=== PATIENT | male | born 1960 | race African-American/Black ===

== ENCOUNTER 2016-08-17 15:02 | Inpatient (IN) | payer MEDICAID ==
[~2016-08-17] VITALS: Ht 170.2 cm; Wt 49.9 kg
[2016-08-17 11:00] VITALS: BP 142/69
[2016-08-17 16:26] LABS: ALBUMIN 3.3 g/dL (3.4-5.0); ANION GAP 23.2 mmol/L (8-16); BILIRUBIN - TOTAL 0.2 mg/dL (0.2-1.3); CALCIUM 8.5 mg/dL (8.5-10.1); CARBON DIOXIDE 13.5 mmol/L (21.0-32.0); CREATININE - SERUM 1.5 mg/dL (0.6-1.3); MAGNESIUM - SERUM 1.9 mg/dL (1.8-2.4); POTASSIUM - SERUM 3.7 mmol/L (3.5-5.1); PROTEIN - SERUM 6.9 g/dL (6.4-8.2)
[2016-08-17 16:31] LABS: BASOPHILS 0.1 % (0-2); EOSINOPHILS 1.2 % (0-7); HEMATOCRIT 25.5 % (42.0-54.0); HEMOGLOBIN 8.3 g/dL (13.5-17.5); IMMATURE GRANULOCYTES 0.6 % (0-5); LYMPHOCYTES 17.8 % (15-50); MCH 29.9 pg (26.0-34.0); MCHC 32.5 g/dL (31.0-37.0); MCV 91.7 fL (80.0-100.0); MONOCYTES 7.5 % (2-11); NEUTROPHILS 72.8 % (40-80); PLATELET COUNT 241 10x3/uL (130-400); RBC 2.78 10x6/uL (4.20-6.10); RDW 16.5 % (11.5-14.5); WBC 15.4 10x3/uL (4.8-10.8)
[2016-08-17 18:44] LABS: APPEARANCE CLEAR (CLEAR); BILIRUBIN NEGATIVE (NEGATIVE); COLOR YELLOW (YELLOW); GLUCOSE NEGATIVE (NEGATIVE); KETONE NEGATIVE (NEGATIVE); LEUKOCYTE ESTERASE NEGATIVE (NEGATIVE); NITRITE NEGATIVE (NEGATIVE); PROTEIN NEGATIVE (NEGATIVE); UROBILINOGEN NORMAL (NORMAL)
[2016-08-17 23:00] VITALS: BP 142/69
--- NOTE | 2016-08-18 00:30 | NUR ---
PATIENT RESTING IN BED WITH NO SIGNS OF DISTRESS. COMPLETED PATIENT'S ASSESSMENT AND HUNG FLUIDS PER ORDERS. BLOOD GLUCOSE CURRENTLY 96. BROUGHT PATIENT SCRUB TOP, SCRUB BOTTOMS, NOSLIP SOCKS, AND SPRITE PER HIS REQUEST. PATIENT DENIES OTHER NEEDS AT THIS TIME. BED IN LOWEST POSITION AND CALL LIGHT WITHIN REACH. ENCOURAGED THE PATIENT TO CALL IF HE HAS FURTHER NEEDS.
[2016-08-18 01:17] VITALS: BP 142/69; BMI 17.2
[2016-08-18] MEDS ORDERED: FOLIC ACID1 MG PO (01:25)
[2016-08-18] MEDS ORDERED: PRENATAL PO (01:29)
[2016-08-18] MEDS ORDERED: FOLIC ACI PO (01:29)
[2016-08-18] MEDS ORDERED: GLUCOTROL ER2.5 MG PO (01:30)
[2016-08-18] MEDS ORDERED: NEURONTIN 300300 MG PO (01:30)
[2016-08-18] MEDS ORDERED: K-TAB10 MEQ PO (01:31)
[2016-08-18] MEDS ORDERED: GLUCOPHAGE500 MG PO (01:33)
[2016-08-18] MEDS ORDERED: LISINOPRIL10 MG PO (01:34)
[2016-08-18] MEDS ORDERED: HUMALOG 30100 UNITS/ SC (01:35)
[2016-08-18 04:39] VITALS: BP 116/54
--- NOTE | 2016-08-18 07:15 | NUR ---
REPORT RECEIVED FROM CHIEF LIBRARIAN BRANCH NURSE. CALL LIGHT IN REACH.
[2016-08-18 07:28] LABS: BASOPHILS 0 % (0-2); EOSINOPHILS 0.8 % (0-7); HEMATOCRIT 26.7 % (42.0-54.0); HEMOGLOBIN 8.9 g/dL (13.5-17.5); IMMATURE GRANULOCYTES 0.2 % (0-5); LYMPHOCYTES 15.1 % (15-50); MCH 29.8 pg (26.0-34.0); MCHC 33.3 g/dL (31.0-37.0); MEAN PLATELET VOLUME 10.3 fL (7.4-10.4); MONOCYTES 10.6 % (2-11); NEUTROPHILS 73.3 % (40-80); PLATELET COUNT 241 10x3/uL (130-400); RBC 2.99 10x6/uL (4.20-6.10); RDW 16.4 % (11.5-14.5); WBC 10.5 10x3/uL (4.8-10.8)
[2016-08-18 07:29] LABS: MCV 89.3 fL (80.0-100.0)
[2016-08-18 07:53] LABS: ANION GAP 13.5 mmol/L (8-16); CALCIUM 8.6 mg/dL (8.5-10.1); CARBON DIOXIDE 24.9 mmol/L (21.0-32.0); CREATININE - SERUM 1.3 mg/dL (0.6-1.3); MAGNESIUM - SERUM 1.4 mg/dL (1.8-2.4); POTASSIUM - SERUM 4.4 mmol/L (3.5-5.1)
[2016-08-18 07:58] VITALS: BP 122/70
--- NOTE | 2016-08-18 09:50 | NUR ---
ASSESSMENT COMPLETED. OFFERED SCDs BUT PATIENT REFUSED. CALL LIGHT IN REACH. WILL CONTINUE WITH PLAN OF CARE.
--- NOTE | 2016-08-18 11:43 | NUR ---
AM MEDS ADMINISTERED. FSBS 308. WAITING ON INSULIN FROM PHARMACY. OFFERED SCDs BUT REFUSED.
--- NOTE | 2016-08-18 12:28 | NUR ---
IV OF NS INITIATED PER DR. OWNE' ORDER.
--- NOTE | 2016-08-18 12:43 | NUR ---
PT AOX4 RESP EVEN AND NONLABORED PT HERE FOR HYPOGLYCEMIA AT THIS TIME IV TO LEFT FOREARM PATENT AND INTACT AND IV TO RIGHT FOREARM PATENT AND INTACT. PT SITTING ON SIDE OF BED BED AT LOWEST SETTING CALL LIGHT WITHIN REACH WILL CONTINUE TO MONITOR
[2016-08-18 12:46] VITALS: BP 120/76
[2016-08-18 12:49] LABS: HEMOGLOBIN A1C 11.4 % (4.8-6.0)
--- NOTE | 2016-08-18 14:30 | NUR ---
DENIES NEEDS AT THIS TIME. CALL LIGHT IN REACH.
[2016-08-18 14:31] VITALS: Ht 170.2 cm; Wt 49.9 kg
[2016-08-18 16:02] VITALS: BP 113/67
--- NOTE | 2016-08-18 16:58 | NUR ---
10 UNITS OF HUMALOG INSULIN SUBQ TO RLQ FOR FSBS 400. LIBRIUM.
--- NOTE | 2016-08-18 18:36 | NUR ---
NO CHANGES IN INITIAL ASSESSMEHNT. CALL LIGHT IN REACH. WANTS TO WAIT UNTIL BEDTIME FOR SCDs. WILL CONTINUE WITH PLAN OF CARE.
[2016-08-18 20:00] VITALS: BP 108/62
--- NOTE | 2016-08-18 22:57 | NUR ---
GEOVANNI CALLED BACK AFTER PAGE. NOTIFIED HER THAT THE PATIENT'S BLOOD GLUCOSE IS 414.
[2016-08-19] VITALS: BP 104/59
--- NOTE | 2016-08-19 03:55 | NUR ---
PATIENT REFUSED SCD'S
[2016-08-19 04:00] VITALS: BP 121/88
--- NOTE | 2016-08-19 04:04 | NUR ---
PATIENT TELEMETRY IS 73 CONT A-FIB
[2016-08-19 05:55] LABS: BASOPHILS 0.1 % (0-2); EOSINOPHILS 2.2 % (0-7); HEMATOCRIT 25.5 % (42.0-54.0); HEMOGLOBIN 8.7 g/dL (13.5-17.5); IMMATURE GRANULOCYTES 0.2 % (0-5); LYMPHOCYTES 36.7 % (15-50); MCH 30.9 pg (26.0-34.0); MCHC 34.1 g/dL (31.0-37.0); MCV 90.4 fL (80.0-100.0); MEAN PLATELET VOLUME 11.4 fL (7.4-10.4); MONOCYTES 12.2 % (2-11); NEUTROPHILS 48.6 % (40-80); PLATELET COUNT 234 10x3/uL (130-400); RBC 2.82 10x6/uL (4.20-6.10); RDW 16.5 % (11.5-14.5); WBC 8.1 10x3/uL (4.8-10.8)
[2016-08-19 06:37] LABS: ANION GAP 14.6 mmol/L (8-16); CALCIUM 8.7 mg/dL (8.5-10.1); CARBON DIOXIDE 23.5 mmol/L (21.0-32.0); CREATININE - SERUM 1.2 mg/dL (0.6-1.3); PHOSPHOROUS 3.9 mg/dL (2.5-4.9); POTASSIUM - SERUM 4.1 mmol/L (3.5-5.1)
--- NOTE | 2016-08-19 07:10 | NUR ---
REPORT RECEIVED FROM POULTRY PROCESSING SUPERVISOR NURSE. CALL LIGHT IN REACH. AMBULATING IN HALLWAY.
--- NOTE | 2016-08-19 07:53 | NUR ---
PATIENT IS AWAKE, AND ALERT. LAYING IN BED EATING TALKING ON THE PHONE. ROOM AIR. NO SIGNS OF DISTRESS NOTED. BED IN LOWEST POSITION, CALL LIGHT IN REACH.
[2016-08-19 07:58] VITALS: BP 145/80
--- NOTE | 2016-08-19 08:35 | NUR ---
ASSESSMENT COMPLETED. AM MEDS ADMINISTERED. REFUSES NICOTINE PATCH AND SCDs. CALL LIGHT IN REACH. WILL CONTINUE WITH PLAN OF CARE.
--- NOTE | 2016-08-19 09:14 | NUR ---
Patient Name: GENEVA LAL Admission Status: ER Accout number: [id number] Admission Date: 08-17-2016 : 1960 Admission Diagnosis: Attending: MIRNA Current LOS: 2 Anticipated DC Date: 08-22-2016 Planned Disposition: Home Primary Insurance: [place] PRIVATE OPTIONS SARBJIT Discharge Planning Comments: CM MET WITH PATIENT REGARDING D/C NEEDS AND PLANS. PATIENT STATED HE LIVES WITH HIS MOM (PARDEEP LAL) AND THERE ARE 4 STEPS W/RAILS TO ENTER HOME AND NO STAIRS INSIDE. PATIENT STATED HE IS INDEPENDENT WITH HIS CARE AND HAS A WALKER AND GLUCOMETER (CKS. MAYBE 1X DAY) AT HOME. PATIENTS PCP IS DR. ROGEL WITH [facility] AND [facility]ARAMCY IS [facility] [address] [facility]. PATIENT REFUSED HOME HEALTH AND PATIENT REFUSED. CM WILL CONTINUE TO FOLLOW PATIENT WITH D/C NEEDS AND PLANS. PCP DR. JUAN F MOORE [address] [facility]- [phone] PARDEEP LAL (MOM) [phone] Physician Assistant: Meera Tovar Is the patient Alert and Oriented? Yes 0 * How many steps to enter\exit or inside your home? 4 W/RAILS 0 * PCP DR. ROGEL ([facility]) 0 * Pharmacy [facility] [address] [facility] 0 * Preadmission Environment Home with Family 0 * ADLs Independent 0 * Equipment Glucometer Walker 0 * List name and contact numbers for known caregivers / representatives who currently or will assist patient after discharge: PARDEEP LAL (MOM) [phone] 0 * Community resources currently utilized None 0 * Additional services required to return to the preadmission environment? Yes 0 * Can the patient safely return to the preadmission environment? Yes 0 * Has this patient been hospitalized within the prior 30 days at any hospital? No 0 Grand Total: 0
--- NOTE | 2016-08-19 10:20 | NUR ---
AMBULATING IN HALLWAY. DENIES NEEDS AT THIS TIME.
[2016-08-19 12:24] LABS: % SATURATION 36 % (15-55); IRON 88 ug/dl (35-150); TOTAL IRON BIND CAPACITY 240 ug/dl (260-445); UNSAT IRON BIND CAPACITY 152 ug/dl (150-375)
[2016-08-19 12:28] VITALS: BP 116/65
--- NOTE | 2016-08-19 12:36 | NUR ---
FSBS 413. NOTIFIED DR. OWEN. 20 UNITS SUBQ TO LLQ ABDOMEN. LIBRIUM PO. CALL LIGHT IN REACH.
--- NOTE | 2016-08-19 14:46 | NUR ---
NO NEEDS VOICED AT THIS TIME. CALL LIGHT IN REACH.
--- NOTE | 2016-08-19 19:00 | NUR ---
PATIENT AMBULATING IN HALLWAY, NOW BACK IN BED. AAOX4. RR EVEN AND UNLBORED. 0 S/S OF DISTRESS. DENIES PAIN AT THIS TIME. IV TO RIGHT HAND PATENT WITH NO REDNESS OR SWELLING. SCD'S IN ROOM BUT OFF. FAMILY AT BEDSIDE. SRX1. BED LOW. CALL LIGHT WITHIN REACH.
[2016-08-19 20:00] VITALS: BP 131/80
--- NOTE | 2016-08-19 21:50 | NUR ---
NIGHTTIME MEDICATIONS ADMINISTERED. 20 UNITS HUMALOG GIVEN FOR BS OF 494. WILL RECHECK.
[2016-08-20] VITALS (12 sets, daily range): BP systolic 98–147; BP diastolic 63–86
--- NOTE | 2016-08-20 01:00 | NUR ---
NO HUMALOG GIVEN FOR BS OF 132.
[2016-08-20 04:35] LABS: BASOPHILS 0.1 % (0-2); EOSINOPHILS 2.8 % (0-7); HEMATOCRIT 24.9 % (42.0-54.0); HEMOGLOBIN 8.1 g/dL (13.5-17.5); IMMATURE GRANULOCYTES 0.2 % (0-5); MCH 29.8 pg (26.0-34.0); MCHC 32.5 g/dL (31.0-37.0); MCV 91.5 fL (80.0-100.0); MEAN PLATELET VOLUME 10.8 fL (7.4-10.4); MONOCYTES 11.2 % (2-11); NEUTROPHILS 58.7 % (40-80); PLATELET COUNT 217 10x3/uL (130-400); RBC 2.72 10x6/uL (4.20-6.10); RDW 16.3 % (11.5-14.5); WBC 8.6 10x3/uL (4.8-10.8)
--- NOTE | 2016-08-20 04:40 | NUR ---
10 UNITS HUMALOG GIVEN FOR BS OF 295
[2016-08-20 04:58] LABS: ANION GAP 12.9 mmol/L (8-16); CALCIUM 8.6 mg/dL (8.5-10.1); CARBON DIOXIDE 26.3 mmol/L (21.0-32.0); CREATININE - SERUM 1.2 mg/dL (0.6-1.3); PHOSPHOROUS 4.2 mg/dL (2.5-4.9); POTASSIUM - SERUM 4.2 mmol/L (3.5-5.1)
[2016-08-20 07:20] LABS: FOLATE (FOLIC ACID) - SERUM >20.0 ng/mL (>3.0)
--- NOTE | 2016-08-20 07:30 | NUR ---
RECIEVED PT DURING WALKING ROUNDS, PT WAS NOT IN ROOM AT THIS TIME, WILL CHECK AT A LATER TIME.
--- NOTE | 2016-08-20 14:00 | NUR ---
PRBC'S STARTED AT THIS TIME PER ORDER. VERIFIED WITH STEPHEN BILLINGS RN. MONITORED PT FOR THE FIRST 15 MINUTES WITH NO REACTIONS NOTED. WILL CONTINUE TO MONITOR PER PROTOCOL.
--- NOTE | 2016-08-20 19:00 | NUR ---
PATIENT AMBULATING IN HALLWAY. AAOX4. RR EVEN AND UNLABORED. 0 S/S OF DISTRESS. STATES PAIN IS A 10/10 DUE TO A TOOTHACHE. IV TO LEFT FA S/L WITH DRESSING CDI.
--- NOTE | 2016-08-20 20:50 | NUR ---
PATIENT BACK IN ROOM. NIGHTTIME MEDICATIONS ADMINISTERED. 16 UNITS HUMALOG GIVEN FOR BS OF 380. TYLENOL GIVEN FOR TOOTHACHE.
--- NOTE | 2016-08-21 00:30 | NUR ---
CHANA HELD FOR BS OF 80.
--- NOTE | 2016-08-21 04:40 | NUR ---
16 UNITS HUMALOG GIVEN FOR BS OF 373.
[2016-08-21 04:53] LABS: BASOPHILS 0.1 % (0-2); EOSINOPHILS 2.9 % (0-7); HEMATOCRIT 28.2 % (42.0-54.0); HEMOGLOBIN 9.1 g/dL (13.5-17.5); IMMATURE GRANULOCYTES 0.2 % (0-5); LYMPHOCYTES 24.5 % (15-50); MCH 29.8 pg (26.0-34.0); MCHC 32.3 g/dL (31.0-37.0); MCV 92.5 fL (80.0-100.0); MEAN PLATELET VOLUME 11.3 fL (7.4-10.4); NEUTROPHILS 62.3 % (40-80); PLATELET COUNT 206 10x3/uL (130-400); RBC 3.05 10x6/uL (4.20-6.10); WBC 9.1 10x3/uL (4.8-10.8)
[2016-08-21 05:06] VITALS: BP 130/90
[2016-08-21 05:08] LABS: CALCIUM 8.6 mg/dL (8.5-10.1); CARBON DIOXIDE 25.4 mmol/L (21.0-32.0); CREATININE - SERUM 1.3 mg/dL (0.6-1.3); PHOSPHOROUS 4.7 mg/dL (2.5-4.9); POTASSIUM - SERUM 4.4 mmol/L (3.5-5.1)
--- NOTE | 2016-08-21 07:30 | NUR ---
RECIEVED PT DURING WALKING ROUNDS. PT RESTING IN BED WITH NO COMPLAINTS OF PAIN OR DISCOMFORT AT THIS TIME. ASSESSMENT DONE PER FLOWSHEET. PT REFUSES TO LOWER BED TO LOW POSITION, STATES "ITS HARDER FOR ME TO GET INTO", CALL LIGHT WITHIN REACH. WILL CONTINUE TO MONITOR.
[2016-08-21 09:11] VITALS: BP 114/78
[2016-08-21] MEDS ORDERED: PROTONIX40 MG PO (11:59)
[2016-08-21] MEDS ORDERED: LANTUS INSULIN10 ML SC (11:59)
[2016-08-21] MEDS ORDERED: NICODERM C1 PATCH .1 TRANSDERM (11:59)
[2016-08-21] MEDS ORDERED: THIAMINE HCL50 MG PO (12:00)
[2016-08-21 12:20] VITALS: BP 118/77
--- NOTE | 2016-08-21 13:01 | NUR ---
DISUCUSSED MD ORDER FOR HH. PATIENT REFUSING HOME HEALTH, DESPITE MD RECOMMENDATION.
--- NOTE | 2016-08-21 14:28 | NUR ---
MEDICATIONS RETURNED TO PT AT THIS TIME, IV REMOVED AND DISCHARGE INSTRUCTIONS GIVEN. CAB CALLED AND PT DISCHARGED TO HOME AT THIS TIME.
--- NOTE | 2016-08-21 16:17 | NUR ---
Late Entry- Patient declines home health. States he will follow up with [facility]. CM will advise his CARDIOVASCULAR LAB DIRECTOR Olive Pina of admission and discharge meds on Monday, when clinic is open. Patient assisted w/ taxi transportation to [address] [place] [address] in [place].
--- NOTE | 2016-08-21 17:15 | NUR ---
PT HOME MEDICATION AND BELONGINGS FOUND WHEN CLEANING ROOM, PT DID NOT HAVE AN ACCURATE CONTACT NUMBER ON FILE. CONTACTED PT PHARMACY AND RECIEVED PHONE NUMBER. CALL PLACED TO WHOM I WAS TOLD WAS THE PATIENTS MOTHER, THE MOTHER STATED THAT SHE WOULD TELL THE PT AND HAVE SOMEONE COME TO BANDOLEER PACKER THE MEDICATION. I RECIEVED A RETURN PHONE CALL FROM THE PTS MOTHER (WITH PATIENT IN THE BACKGROUND DIRECTING CONVERSATION), STATING THAT PT REPORTED HE WAS TOLD THAT HE " DID NOT HAVE TO TAKE ANY MEDICATIONS AT HOME." I INFORMED THE MOTHER/PT THAT WAS NOT CORRECT INFORMATION AND THAT THE PT WAS GIVEN INSTRUCTIONS ON HIS MEDICATIONS WHEN HE WAS DISCHARGED. I INFORMED HER THAT HE NEEDED TO CHECK HIS BLOOD SUGAR AND IN THE BACKGROUND THE PT STATED HE DIDNT AND THEN ASKED HOW MUCH INSULIN HE NEEDED TO TAKE FOR HIS SUGAR. I AGAIN EXPLAINED TO THE PT AND THE PTS MOTHER THAT ALL THIS INFORMATION WAS EXPLAINED TO THE PT PRIOR TO HIS DISCHARGE. THE MOTHER PROCEEDED TO TALK TO THE PT AND TELL HIM TO HAVE SOMEONE COME AND GET THE MEDICATION AND HE RESPONDED "I'LL GET IT LATER" I INFORMED THE MOTHER OF THE PT OF THE IMPORTANCE OF THE PT TAKING HIS MEDICATION PER ORDER WELL GETTING THE PRESCRIPTIONS FROM THE DOCTOR FILLED AT THE PHARMACY. I TOLD THE PTS MOTHER THAT I WOULD BE LOCKING THE MEDICATIONS UP AND THAT THE PTS BELONGINGS WOULD BE IN THE NURSE MANAGERS OFFICE. INFORMED BAKARI LALEGAL SUPPORT MANAGER OF THE SITUATION. CORRECT CONTACT INFORMATION: [phone]
== END 2016-08-21 14:32 | disposition home or self-care (01) | DRG 947 ==
LOC: D.ER 15:02 → D.MS 20:52
PROVIDERS: Internal Medicine Nephrology; Physician Assistant; ADMIT Family Medicine
DX: R41.82 Altered mental status, unspecified (principal); G93.41 Metabolic encephalopathy; E87.2 Acidosis; N17.9 Acute kidney failure, unspecified; F17.203 Nicotine dependence unspecified, with withdrawal; R56.9 Unspecified convulsions; Z79.4 Long term (current) use of insulin; F32.9 Major depressive disorder, single episode, unspecified

== ENCOUNTER → 2016-09-13 13:59 | Outpatient (CLI) | payer MEDICAID ==
[2016-08-18 14:31] VITALS: BMI 17.2
[~2016-09-13 13:59] MED LIST: FOLIC ACI PO; FOLIC ACID1 MG PO; GLUCOPHAGE500 MG PO; GLUCOTROL ER2.5 MG PO; HUMALOG 30100 UNITS/ SC; K-TAB10 MEQ PO; LANTUS INSULIN10 ML SC; LISINOPRIL10 MG PO; NEURONTIN 300300 MG PO; NICODERM C1 PATCH .1 TRANSDERM; PRENATAL PO; PROTONIX40 MG PO; THIAMINE HCL50 MG PO
== END | disposition home or self-care (01) ==
LOC: D.MRI 13:59
DX: M79.652 Pain in left thigh (principal)

== ENCOUNTER → 2016-10-17 09:11 | Outpatient (CLI) | payer MEDICAID ==
[2016-08-18 14:31] VITALS: BMI 17.2
== END | disposition home or self-care (01) ==
LOC: D.MRI 09-23 11:00
DX: M79.652 Pain in left thigh (principal)

== ENCOUNTER 2017-09-30 16:11 | Emergency (ER) | payer MEDICAID ==
[~2017-09-30] VITALS: Ht 170.2 cm; Wt 68.2 kg
[2017-09-30 16:21] VITALS: Ht 170.2 cm; Wt 68.2 kg
[2017-09-30 16:48] LABS: HEMATOCRIT 34.1 % (42.0-54.0); HEMOGLOBIN 11.2 g/dL (13.5-17.5); MCH 32.1 pg (26.0-34.0); MCHC 32.8 g/dL (31.0-37.0); MCV 97.7 fL (80.0-100.0); MEAN PLATELET VOLUME 11.1 fL (7.4-10.4); PLATELET COUNT 214 10x3/uL (130-400); RBC 3.49 10x6/uL (4.20-6.10); WBC 7.8 10x3/uL (4.8-10.8)
[2017-09-30 17:05] LABS: ALBUMIN 3.6 g/dL (3.4-5.0); ANION GAP 17.8 mmol/L (8-16); BILIRUBIN - TOTAL 0.31 mg/dL (0.2-1.3); CALCIUM 8.7 mg/dL (8.5-10.1); CREATININE - SERUM 1.1 mg/dL (0.6-1.3); POTASSIUM - SERUM 3.8 mmol/L (3.5-5.1); PROTEIN - SERUM 8.1 g/dL (6.4-8.2)
[2017-09-30 17:10] LABS: EOSINOPHILS 2 % (0-7); LYMPHOCYTES 55 % (15-50); NEUTROPHILS 41 % (40-80)
[2017-09-30 17:13] LABS: PLATELET ESTIMATE NORMAL
[2017-09-30 17:42] LABS: UDS - AMPHET NEGATIVE QUAL (NEGATIVE); UDS - BARB NEGATIVE QUAL (NEGATIVE); UDS - BENZO NEGATIVE QUAL (NEGATIVE); UDS - COCAINE NEGATIVE QUAL (NEGATIVE); UDS - OPIATE NEGATIVE QUAL (NEGATIVE); UDS - PCP NEGATIVE QUAL (NEGATIVE); UDS - THC NEGATIVE QUAL (NEGATIVE)
[2017-09-30 18:41] VITALS: BP 151/80
== END 2017-09-30 18:21 | disposition left against medical advice (07) ==
LOC: D.ER 16:11
PROVIDERS: Family Medicine; Nurse Practitioner Family
DX: F10.129 Alcohol abuse with intoxication, unspecified (principal); E11.9 Type 2 diabetes mellitus without complications

== ENCOUNTER 2017-11-07 02:25 | Emergency (ER) | payer MEDICAID ==
[~2017-11-07] VITALS: Ht 170.2 cm; Wt 50.0 kg
[2017-11-07 02:31] VITALS: Ht 170.2 cm; Wt 50.0 kg
[2017-11-07 03:18] LABS: UDS - AMPHET NEGATIVE QUAL (NEGATIVE); UDS - BARB NEGATIVE QUAL (NEGATIVE); UDS - BENZO NEGATIVE QUAL (NEGATIVE); UDS - COCAINE NEGATIVE QUAL (NEGATIVE); UDS - OPIATE NEGATIVE QUAL (NEGATIVE); UDS - PCP NEGATIVE QUAL (NEGATIVE); UDS - THC NEGATIVE QUAL (NEGATIVE)
[2017-11-07 03:20] LABS: APPEARANCE CLEAR (CLEAR); BILIRUBIN NEGATIVE (NEGATIVE); COLOR STRAW (YELLOW); GLUCOSE NEGATIVE (NEGATIVE); KETONE NEGATIVE (NEGATIVE); NITRITE NEGATIVE (NEGATIVE); PROTEIN 1+ mg/dL (NEGATIVE); UROBILINOGEN NORMAL (NORMAL)
[2017-11-07 03:22] LABS: AMORPHOUS SEDIMENT <1+ /lpf (NONE SEEN); BACTERIA FEW /hpf (NONE SEEN); EPITHELIAL CELLS 0-5 /hpf (0-5); RED CELLS - URINE 0-5 /hpf (0-5); WHITE CELLS - URINE 0-5 /hpf (0-5)
[2017-11-07 03:43] VITALS: BP 142/89
== END 2017-11-07 03:40 | disposition left against medical advice (07) ==
LOC: D.ER 02:25
PROVIDERS: Family Medicine
DX: F10.10 Alcohol abuse, uncomplicated (principal); E11.9 Type 2 diabetes mellitus without complications; F17.200 Nicotine dependence, unspecified, uncomplicated

== ENCOUNTER 2018-04-08 14:49 | Emergency (ER) | payer MEDICAID ==
[~2018-04-08] VITALS: Ht 170.2 cm; Wt 63.6 kg
[2018-04-08 15:01] VITALS: Ht 170.2 cm; Wt 63.6 kg
[2018-04-08 15:58] LABS: BASOPHILS 0.2 % (0-2); EOSINOPHILS 0.4 % (0-7); HEMATOCRIT 33.6 % (42.0-54.0); HEMOGLOBIN 11.2 g/dL (13.5-17.5); IMMATURE GRANULOCYTES 0.2 % (0-5); LYMPHOCYTES 35.7 % (15-50); MCH 31.2 pg (26.0-34.0); MCHC 33.3 g/dL (31.0-37.0); MCV 93.6 fL (80.0-100.0); MEAN PLATELET VOLUME 9.7 fL (7.4-10.4); MONOCYTES 3.3 % (2-11); NEUTROPHILS 60.2 % (40-80); RBC 3.59 10x6/uL (4.20-6.10); RDW 15.1 % (11.5-14.5); WBC 9.9 10x3/uL (4.8-10.8)
[2018-04-08 16:11] LABS: PLATELET COUNT 309 10x3/uL (130-400)
[2018-04-08 16:38] LABS: ALBUMIN 3.3 g/dL (3.4-5.0); ANION GAP 20.7 mmol/L (8-16); BILIRUBIN - TOTAL 0.19 mg/dL (0.2-1.3); CALCIUM 8.8 mg/dL (8.5-10.1); CARBON DIOXIDE 22.7 mmol/L (21.0-32.0); CREATININE - SERUM 1.1 mg/dL (0.6-1.3); POTASSIUM - SERUM 3.4 mmol/L (3.5-5.1); PROTEIN - SERUM 8.8 g/dL (6.4-8.2)
[2018-04-08 16:42] LABS: MAGNESIUM - SERUM 1.9 mg/dL (1.8-2.4)
[2018-04-08 17:34] LABS: APPEARANCE CLEAR (CLEAR); BILIRUBIN NEGATIVE (NEGATIVE); COLOR YELLOW (YELLOW); GLUCOSE NEGATIVE (NEGATIVE); KETONE NEGATIVE (NEGATIVE); NITRITE NEGATIVE (NEGATIVE); PROTEIN 2+ mg/dL (NEGATIVE); SPECIFIC GRAVITY 1.015 (1.005-1.020); UROBILINOGEN NORMAL (NORMAL)
[2018-04-08 17:36] LABS: BACTERIA MODERATE /hpf (NONE SEEN); EPITHELIAL CELLS 0-5 /hpf (0-5); GRANULAR CAST 0-5 /lpf (NONE SEEN); RED CELLS - URINE 0-5 /hpf (0-5); WHITE CELLS - URINE 0-5 /hpf (0-5)
[2018-04-08 17:42] LABS: UDS - AMPHET NEGATIVE QUAL (NEGATIVE); UDS - BARB NEGATIVE QUAL (NEGATIVE); UDS - BENZO NEGATIVE QUAL (NEGATIVE); UDS - COCAINE NEGATIVE QUAL (NEGATIVE); UDS - OPIATE NEGATIVE QUAL (NEGATIVE); UDS - PCP NEGATIVE QUAL (NEGATIVE); UDS - THC NEGATIVE QUAL (NEGATIVE)
[2018-04-08 21:55] VITALS: BP 150/89
== END 2018-04-08 21:55 | disposition home or self-care (01) ==
LOC: D.ER 14:49
PROVIDERS: Family Medicine
DX: F10.129 Alcohol abuse with intoxication, unspecified (principal); F32.9 Major depressive disorder, single episode, unspecified; G40.909 Epilepsy, unspecified, not intractable, without status epilepticus; E11.9 Type 2 diabetes mellitus without complications

== ENCOUNTER 2018-12-02 12:11 | Emergency (ER) | payer MEDICAID ==
[~2018-12-02] VITALS: Ht 170.2 cm; Wt 75.0 kg
[2018-12-02 12:20] VITALS: Ht 170.2 cm; Wt 75.0 kg
[2018-12-02 13:26] LABS: BASOPHILS 0.4 % (0-2); EOSINOPHILS 2.5 % (0-7); HEMATOCRIT 30.6 % (42.0-54.0); HEMOGLOBIN 9.9 g/dL (13.5-17.5); IMMATURE GRANULOCYTES 0.3 % (0-5); LYMPHOCYTES 48.8 % (15-50); MCH 29.9 pg (26.0-34.0); MCHC 32.4 g/dL (31.0-37.0); MCV 92.4 fL (80.0-100.0); MEAN PLATELET VOLUME 10.6 fL (7.4-10.4); MONOCYTES 8.6 % (2-11); NEUTROPHILS 39.4 % (40-80); RBC 3.31 10x6/uL (4.20-6.10); RDW 16.3 % (11.5-14.5); WBC 6.9 10x3/uL (4.8-10.8)
[2018-12-02 13:27] LABS: PLATELET COUNT 233 10x3/uL (130-400)
[2018-12-02 13:39] LABS: ALBUMIN 3.3 g/dL (3.4-5.0); ALKALINE PHOSPHATASE 97 U/L (46-116); ALT (SGPT) 34 U/L (10-68); BILIRUBIN - TOTAL 0.37 mg/dL (0.2-1.3); CALC OSMOLALITY 289 mosm/kg (275-300); CALCIUM 8.3 mg/dL (8.5-10.1); CARBON DIOXIDE 24.6 mmol/L (21.0-32.0); CHLORIDE - SERUM 109 mmol/L (98-107); CREATININE - SERUM 1.1 mg/dL (0.6-1.3); GLUCOSE 97 mg/dL (74-106); POTASSIUM - SERUM 3.4 mmol/L (3.5-5.1); PROTEIN - SERUM 7.7 g/dL (6.4-8.2); SODIUM 145 mmol/L (136-145); UREA NITROGEN 14 mg/dL (7-18); eGFR NON AFRICAN AMERICAN 73 mL/min (90-120)
[2018-12-02 13:54] LABS: CKMB 5.2 U/L (0.0-3.6); CREATINE KINASE 289 UL (21-232); PRO BNP 37 pg/mL (0-125); THYROID STIMULATING HORMONE 0.74 uIU/mL (0.36-3.74)
[2018-12-02 13:57] LABS: TROPONIN-I < 0.017 ng/mL (0.000-0.060)
[2018-12-02 14:18] LABS: APPEARANCE CLEAR (CLEAR); BILIRUBIN NEGATIVE (NEGATIVE); COLOR STRAW (YELLOW); GLUCOSE NEGATIVE (NEGATIVE); KETONE NEGATIVE (NEGATIVE); NITRITE NEGATIVE (NEGATIVE); PROTEIN NEGATIVE (NEGATIVE); UROBILINOGEN NORMAL (NORMAL)
[2018-12-02 14:19] LABS: BACTERIA FEW /hpf (NEGATIVE); EPITHELIAL CELLS 0-5 /hpf (0-5); RED CELLS - URINE 0-5 /hpf (0-5); WHITE CELLS - URINE RARE /hpf (NEGATIVE)
[2018-12-02 14:25] LABS: UDS - AMPHET NEGATIVE QUAL (NEGATIVE); UDS - BARB NEGATIVE QUAL (NEGATIVE); UDS - BENZO NEGATIVE QUAL (NEGATIVE); UDS - COCAINE NEGATIVE QUAL (NEGATIVE); UDS - OPIATE NEGATIVE QUAL (NEGATIVE); UDS - PCP NEGATIVE QUAL (NEGATIVE); UDS - THC NEGATIVE QUAL (NEGATIVE)
[2018-12-02 19:49] VITALS: BP 125/88
== END 2018-12-02 19:49 | disposition home or self-care (01) ==
LOC: D.ER 12:11
PROVIDERS: Emergency Medicine
DX: R53.1 Weakness (principal); F10.10 Alcohol abuse, uncomplicated; E11.9 Type 2 diabetes mellitus without complications; F32.9 Major depressive disorder, single episode, unspecified

== ENCOUNTER 2019-07-03 16:53 | Emergency (ER) | payer MEDICAID ==
[~2019-07-03] VITALS: Ht 170.2 cm; Wt 45.5 kg
[2019-07-03 16:59] VITALS: Ht 170.2 cm; Wt 45.5 kg
[2019-07-03] MEDS ORDERED: LASIX20 MG PO (17:03)
[2019-07-03] MEDS ORDERED: MEGACE 20 MG TA20 MG PO (17:04)
[2019-07-03] MEDS ORDERED: BISOPROLOL FUMAR5 MG PO (17:04)
[2019-07-03] MEDS ORDERED: TRAZODONE HCL150 MG PO (17:04)
[2019-07-03] MEDS ORDERED: GLIPIZIDE10 MG PO (17:05)
[2019-07-03] MEDS ORDERED: GLUCOTROL 5 MG T5 MG PO (17:05)
[2019-07-03 17:25] LABS: BASOPHILS 0.1 % (0-2); EOSINOPHILS 0.2 % (0-7); HEMOGLOBIN 9.5 g/dL (13.5-17.5); IMMATURE GRANULOCYTES 0.3 % (0-5); LYMPHOCYTES 22.1 % (15-50); MCH 31.4 pg (26.0-34.0); MCHC 32.8 g/dL (31.0-37.0); MCV 95.7 fL (80.0-100.0); MEAN PLATELET VOLUME 10.5 fL (7.4-10.4); MONOCYTES 7.4 % (2-11); NEUTROPHILS 69.9 % (40-80); PLATELET COUNT 242 10x3/uL (130-400); RBC 3.03 10x6/uL (4.20-6.10); RDW 15.5 % (11.5-14.5); WBC 10.1 10x3/uL (4.8-10.8)
[2019-07-03 17:42] LABS: APTT 27.1 SECONDS (22.8-39.4); INR 1.14 (0.85-1.17); PROTIME 14.6 SECONDS (11.6-15.0)
[2019-07-03 17:48] LABS: D-DIMER-QUANTITATIVE 1.29 ug/mLFEU (0.20-0.54)
[2019-07-03 18:07] LABS: ALBUMIN 2.1 g/dL (3.4-5.0); ALKALINE PHOSPHATASE 165 U/L (30-120); ALT (SGPT) 24 U/L (10-68); BILIRUBIN - TOTAL 0.65 mg/dL (0.2-1.3); CALC OSMOLALITY 273 mosm/kg (275-300); CALCIUM 8.2 mg/dL (8.5-10.1); CARBON DIOXIDE 22.6 mmol/L (21.0-32.0); CHLORIDE - SERUM 100 mmol/L (98-107); CKMB 1.7 U/L (0.0-3.6); CREATINE KINASE 105 UL (21-232); CREATININE - SERUM 1.1 mg/dL (0.6-1.3); GLUCOSE 105 mg/dL (74-106); PRO BNP 175 pg/mL (0-125); PROTEIN - SERUM 6.5 g/dL (6.4-8.2); SODIUM 138 mmol/L (136-145); UREA NITROGEN 6 mg/dL (7-18); eGFR NON AFRICAN AMERICAN 73 mL/min (90-120)
[2019-07-03 18:14] LABS: POTASSIUM - SERUM 2.5 mmol/L (3.5-5.1)
[2019-07-03 22:30] VITALS: BP 132/69
== END 2019-07-03 22:30 | disposition home or self-care (01) ==
LOC: D.ER 16:53
PROVIDERS: Family Medicine
DX: R60.0 Localized edema (principal); N48.89 Other specified disorders of penis; E11.9 Type 2 diabetes mellitus without complications; I10 Essential (primary) hypertension; Z72.0 Tobacco use; Z79.84 Long term (current) use of oral hypoglycemic drugs; Z79.4 Long term (current) use of insulin; R91.8 Other nonspecific abnormal finding of lung field

== ENCOUNTER 2019-07-26 07:49 | Day surgery (SDC) | payer MEDICAID ==
[~2019-07-26] VITALS: Ht 170.2 cm; Wt 42.2 kg
[~2019-07-26 07:49] MED LIST changes: +ALDACTONE25 MG PO; +BISOPROLOL FUMAR5 MG PO; +GLIPIZIDE10 MG PO; +GLUCOTROL 5 MG T5 MG PO; +LASIX20 MG PO; +MEGACE 20 MG TA20 MG PO; +TRAZODONE HCL150 MG PO
[2019-07-26 08:13] LABS: BASOPHILS 0.2 % (0-2); EOSINOPHILS 0.1 % (0-7); HEMATOCRIT 27.4 % (42.0-54.0); HEMOGLOBIN 8.9 g/dL (13.5-17.5); IMMATURE GRANULOCYTES 0.8 % (0-5); LYMPHOCYTES 29.4 % (15-50); MCH 31.2 pg (26.0-34.0); MCHC 32.5 g/dL (31.0-37.0); MCV 96.1 fL (80.0-100.0); MEAN PLATELET VOLUME 9.4 fL (7.4-10.4); MONOCYTES 5.5 % (2-11); RBC 2.85 10x6/uL (4.20-6.10); RDW 15.3 % (11.5-14.5); WBC 10.3 10x3/uL (4.8-10.8)
[2019-07-26 08:14] LABS: CALC OSMOLALITY 280 mosm/kg (275-300); CALCIUM 8.1 mg/dL (8.5-10.1); CARBON DIOXIDE 26.5 mmol/L (21.0-32.0); CHLORIDE - SERUM 107 mmol/L (98-107); POTASSIUM - SERUM 3.2 mmol/L (3.5-5.1); SODIUM 143 mmol/L (136-145); UREA NITROGEN 11 mg/dL (7-18); eGFR NON AFRICAN AMERICAN 81 mL/min (90-120)
[2019-07-26 08:28] LABS: GLUCOSE 46 mg/dL (74-106)
[2019-07-26 08:32] LABS: PLATELET COUNT 307 10x3/uL (130-400)
[2019-07-26 09:07] VITALS: BP 126/79; Ht 170.2 cm; Wt 42.2 kg
--- NOTE | 2019-07-26 13:39 | HP ---
PATIENT: HELENA LAL MEDICAL RECORD: [id number] ACCOUNT: [id number] LOCATION:[facility] : 62 ADMISSION DATE: 07/26/19 P[facility]: [facility] HISTORY AND PHYSICAL EXAMINATION HISTORY OF PRESENT ILLNESS: Mr. Lal is a 59-year-old male smoker with persistent sore throat and odynophagia symptoms. He had a negative exam, but his symptoms persist, he is being admitted for direct laryngoscopy, rigid esophagoscopy, and possible biopsies. PAST MEDICAL HISTORY: Diabetes and skin cancer. PAST SURGICAL HISTORY: Includes skin cancer removal. CURRENT MEDICATIONS: Include Megestrol, glipizide, and bisoprolol. ALLERGIES: HALLUCINATIONS ON ATIVAN AND ALLERGY TO LISINOPRIL. SOCIAL HISTORY: Smoker, half pack a day. PHYSICAL EXAMINATION: GENERAL: He is healthy-appearing, but very thin male. FACE: Normal, symmetric, no lesions. EYES: Sclerae and conjunctivae are normal. EARS: Canals and TMs normal. NOSE: No mass, polyps, or drainage. ORAL CAVITY AND OROPHARYNX: Tongue protrudes in midline. Pharynx base of tongue. Palate, all look normal. I see no lesions or inflammation. NECK: No masses, no adenopathy, no thyromegaly. Direct laryngoscopy could examine the nasopharynx, hypopharynx, vallecula, base of tongue, supraglottic larynx, I see no lesions, masses, or inflammation. CHEST: Clear. CARDIOVASCULAR: Regular rate and rhythm, no murmur. EXTREMITIES: Normal. IMPRESSION: Persistent sore throat and pain. He is a smoker. His exam has been negative. PLAN: Endoscopy with possible biopsy. TRANSINT:[id number] Voice Confirmation ID: [id number] DOCUMENT ID: [id number] KENZIE JOHNSON MD at 1339 CC: [id number] DICTATION DATE: 07/24/19 153 REINFORCING STEEL ERECTOR: 07/24/192133 [place] [id number] [place] [id number]
--- NOTE | 2019-07-26 15:19 | NUR ---
1445-REMOVED IV WITH CATH INTACT,DISPOSED INTO SHARPS,COVERED WITH GUAZE,SECURED WITH MEDIPORE TAPE.VSS.NO DISTRESS.NO N/V. PAIN TO THROAT 07/06.
--- NOTE | 2019-07-26 15:26 | NUR ---
1510-REVIEWED POST OPERATIVE INSTRUCTIONS AND FOLLOW UP APPOINTMENT WITH PT AND MOTHER AT BEDSIDE. VERBALIZED UNDERSTANDING. ESCORTED OUT VIA W/C WITH MOTHER WHO IS DRIVING PT HOME
--- NOTE | 2019-07-29 17:18 | OP ---
PATIENT NAME: HELENA LAL MEDICAL RECORD: [id number] :62 LOCATION:[facility] ADMISSION DATE: SURGEON: JORDON VILLEGAS MD DATE OF OPERATION: 07/26/2019 PREOPERATIVE DIAGNOSIS: Persistent throat pain. POSTOPERATIVE DIAGNOSIS: Persistent throat pain with exophytic lesion of the lingual surface of the epiglottis and vallecula crosses the midline, but more on the right side. PROCEDURE: Direct laryngoscopy with biopsies, rigid esophagoscopy. SURGEON: Jordon Villegas MD ANESTHESIA: General orotracheal. BLOOD LOSS: 1 cc. SPECIMENS: Multiple biopsies from the lingual surface of the epiglottis and vallecula. COMPLICATIONS: None. DISPOSITION: Recovery stable. DESCRIPTION OF PROCEDURE: He was brought to the operating room and placed in supine position, sedated and intubated by anesthesia. The table was turned 90 degrees. Head drape was applied. He was positioned for endoscopy. Plastic upper tooth guard was placed. The oral cavity and oropharynx were examined and palpated using a headlight for visualization. Then, Kleinsasser J laryngoscope was inserted and used to evaluate the posterior pharyngeal wall, lateral pharyngeal ruelas, tonsils, both the piriforms, the supraglottic larynx, vallecula, base of tongue. There was extremely thick yellow secretions, very difficult to evacuate from the vallecula, epiglottis. I suctioned that off and there was an obvious lesion, erosive slightly exophytic lesion in the vallecula across the midline to the left side, but mostly right-sided lingual surface of the epiglottis lesions. Multiple biopsies were taken with upbiting 4 mm cup forceps. These were not sent for frozen due to the need to really make the procedure as short as possible due to his health concerns. There was really no significant bleeding from that area. Rigid esophagoscope was inserted easily and passed through the esophageal inlet to the distal esophagus completely unremarkable and normal. That was removed. The site of the biopsy was examined. There was no bleeding. The plastic tooth guard was removed. He was awakened, extubated, and transported to recovery in good condition. TRANSINT:[id number] Voice Confirmation ID: [id number] DOCUMENT ID: [id number] OPERATIVE REPORT [id number] HELENA LAL JORDON VILLEGAS MD at 1718 CC: [id number] DICTATION DATE: 07/26/19 1351 ELECTRONIC SCALE TESTER: 07/27/19 0002 [facility] 07/26/19 [place] [id number] [place] [id number]
== END 2019-07-26 15:10 | disposition home or self-care (01) ==
LOC: D.OPS 07:49 → D.PAN 09:25 → D.OPS 10:00 → D.PAN 10:00 → D.OPS 10:30
PROVIDERS: Anesthesiology; ATTEND Otolaryngology
DX: R07.0 Pain in throat (principal); E11.9 Type 2 diabetes mellitus without complications; Z79.84 Long term (current) use of oral hypoglycemic drugs